=== PATIENT | female | born 1950 | race Caucasian/White ===

== ENCOUNTER → 2017-01-23 | Outpatient (CLI) | payer OTHER ==
[~2017-01-23] MED LIST: AMLO10TA2 PO; ASPI325T PO; DIVA125T PO; LEVO.1 PO; LISI40TA PO
--- NOTE | 2017-01-23 21:44 | MG ---
cc: NORBERTO ANGULO MD Lab No: Date: 01/23/2017 Age: Sex: F Race: EEG NUMBER [id number] DATE OF 1950 INDICATION A 66-year-old history of stroke, difficulty with balance, word-finding, episode of drooling at night. DESCRIPTION 8-9 Hz alpha activity, 20-50 microvolts, low amplitude beta in the frontal channels, good anterior-posterior gradient. Mild driving with photic stimulation. Left temporal tiny sharp transient epoch 109. Frequent eye movement blink artifact towards the end of the recording. Attenuation slowing of background followed by a wakeful state. A single lead EKG showing sinus rhythm. INTERPRETATION Minimal nonspecific changes as noted above, otherwise normal, stable EEG. No active seizures. Clinical correlation. Norberto Angulo MD MG/KK /9:10 PM /9:33 PM
== END ==
LOC: HEEG 08:17
PROVIDERS: ATTEND Psychiatry & Neurology Neurology
DX: I63.9 Cerebral infarction, unspecified (principal)
CPT/HCPCS: 95819

== ENCOUNTER 2017-03-11 05:59 | Day surgery (SDC) | payer OTHER ==
[2017-03-11] MEDS ORDERED: ASPI325T PO (07:18)
[2017-03-11] MEDS ORDERED: LEVO.1 PO (07:18)
[2017-03-11] MEDS ORDERED: AMLO10TA2 PO (07:18)
[2017-03-11] MEDS ORDERED: LISI40TA PO (07:18)
[2017-03-11] MEDS ORDERED: DIVA125T PO (07:18)
[2017-03-11] MEDS ORDERED: PROPOFOL 200 MG/20 ML AMP IV ONE (07:42)
--- NOTE | 2017-03-11 09:44 | MA ---
cc: DO Tutu MARKS. MD SUH,SUE HU MD DATE: 03/11/2017 DATE OF : 1950. REFERRING PHYSICIAN Dr. Zuñiga. CLINICAL INDICATION The patient is a 66-year-old lady with CVA, thus the patient came in for MAURICE to assess MR and whether the patient has any thrombosis/AST/PFO. PROCEDURE IN DETAIL The patient was sedated by the anesthesiologist using MAC. Transesophageal probe was advanced to distal part of esophagus. Multiple views of MAURICE were taken. The patient tolerated the procedure without any complication. FINDINGS With multiple views there is no obvious thrombus in left atrial and left atrial appendage. LV systolic function is preserved with some degree of LVH, mild to moderate MR is noted. Trace TR is also noted. There is no significant intraatrial shunts by Carotid Doppler flow. Bubble study showed no particle crossing. There is mild atherosclerotic plaque along the aortic arch. CONCLUSION 1. No apparent thrombus in the left atrial and left atrial appendage. 2. No AST/PFO. 3. Preserved LV systolic function with mild LVH. 4. Mild atherosclerotic plaque along the aortic arch. PLAN So far there is no convincing evidence for intracardiac thrombus. May consider ___ monitor, to monitor whether the patient has atrial fibrillation. Also the patient will be discharged home with followup. Thank you Dr. Marks. MD BRYANT Dan/TAEL /8:35 AM /9:35 AM
--- NOTE | 2017-03-12 07:44 | EKG ---
Date Performed: 03/11/2017 Time Performed: 07:10:54 PTAGE: 66 years EKG: Sinus rhythm . Leftward axis Borderline ECG NO PREVIOUS TRACING DOCTOR: Steve Reyes Interpretating Date/Time 03/12/2017 07:42:51
== END 2017-03-11 09:50 | disposition home or self-care (01) ==
LOC: HDOC 05:59 → HDIC 06:00 → HDOC 09:50
PROVIDERS: ATTEND Internal Medicine Cardiovascular Disease
DX: I63.9 Cerebral infarction, unspecified (principal); I10 Essential (primary) hypertension; E78.5 Hyperlipidemia, unspecified; E03.9 Hypothyroidism, unspecified; I34.0 Nonrheumatic mitral (valve) insufficiency; I70.0 Atherosclerosis of aorta
CPT/HCPCS: 93005; 93312; 93320; 93325

== ENCOUNTER → 2017-05-16 | Day surgery (SDC) | payer OTHER ==
[~2017-05-16] VITALS: Ht 147.3 cm; Wt 55.9 kg
[~2017-05-16] MED LIST changes: +ATROPINE SULFATE 1% OPHT SOLN 2 ML BTL ONE; +BALANCED SALT SOLN OPHT IRRIG 15 ML BTL ONE; +CHLORHEXIDINE GLUCONATE 2 % 1 PACK (2 CLOTHS) TOPICAL PRN; +DEXAMETHASONE SOD PHOS 4 MG/ML VIAL ONE; +DO NOT ADM ANY ANTICOAGULANT DRUGS PRN; +EPINEPHrine HCL (1:1000) 1 MG/ML VIAL ONE; +FLUO-1 PO; +INSULIN HUMAN REGULAR 1,000 UNITS/10 ML VIAL SQ PRN; +LACTATED RINGER'S 1000 ML IV PRN; -LEVO.1 PO; +LEVO88TA2 PO; +METOPROLOL TARTRATE 25 MG TAB PO PRN; +OMEG100010 PO; +ONDANSETRON HCL 4 MG/2 ML VIAL IV PUSH ONE; +POVIDONE IODINE 5% (ANTISEPSIS KIT) 4 APPLICATIONS EACH NARE PRN; +PROPOFOL 200 MG/20 ML AMP IV ONE; +SODIUM CHLORID 0.9% 500 ML IV PRN; +STERILE WATER FOR INJ 20 ML VIAL ONE; +TOBRAMYCIN/DEXAMETHASONE OPTH OINT 3.5 GM TUBE ONE; +TRIAMCINOLONE ACETONIDE/PF 40 MG/ML OPTH VIAL ONE; +ceFAZolin INJ 1,000 MG VIAL ONE; +ePHEDrine/NS 25 MG/5 ML SYR IV ONE
[2017-05-16 11:03] VITALS: BP 123/68; PULSE 70; RESP 18; TEMP 98.9; O2SAT 98
[2017-05-16 11:04] LABS: BASOPHIL # 0.1 TH/MM3 (0-0.2); BASOPHIL % 0.9 % (0.0-2.0); EOSINOPHIL # 0.1 TH/MM3 (0-0.4); EOSINOPHIL % 2.1 % (0.0-4.0); HEMATOCRIT 37.5 % (35.0-46.0); HEMO FLAGS DIFF FINAL; LYMPH % 40.8 % (9.0-44.0); LYMPHOCYTE # 2.6 TH/MM3 (1.0-4.8); MEAN CELL VOLUME 90.3 FL (80.0-100.0); MEAN CORPUSCULAR HEMOGLOBIN 29.7 PG (27.0-34.0); MEAN CORPUSCULAR HGB CONC 32.9 % (32.0-36.0); MONO % 10.1 % (0.0-8.0); NEUT % 46.1 % (16.0-70.0); PLATELET COUNT 137 TH/MM3 (150-450); RED BLOOD COUNT 4.15 MIL/MM3 (4.00-5.30); RED CELL DISTRIBUTION WIDTH 13.2 % (11.6-17.2); WHITE BLOOD COUNT 6.5 TH/MM3 (4.0-11.0)
[2017-05-16] MEDS: TROPICAMIDE 1% OPHT SOLN 15 ML BTL RIGHT EYE SCH ×4 (11:33→12:33)
[2017-05-16] MEDS: CYCLOPENTOLATE HCL 1% OPHT SOLN 2 ML BTL RIGHT EYE SCH ×4 (11:33→12:33)
[2017-05-16] MEDS: ATROPINE SULFATE 1% OPHT SOLN 5 ML BTL RIGHT EYE SCH ×4 (11:33→12:33)
[2017-05-16] MEDS: PHENYLEPHRINE HCL 2.5% OPTH SOLN 2 ML BTL RIGHT EYE SCH ×4 (11:33→12:33)
[2017-05-16 16:05] VITALS: BP 140/65; PULSE 79; RESP 20; TEMP 97.1; O2SAT 98
--- NOTE | 2017-05-16 17:54 | MP ---
cc: BRITTANY HUSAIN M.D. DATE OF SURGERY: 05/16/2017. 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 OPERATIVE PROCEDURE PERFORMED: Trans pars plana vitrectomy with Endo panretinal photocoagulation, right eye. SURGEON: Brittany Husain MD. ANESTHESIA: INDICATIONS FOR THE PROCEDURE: Ms. Valdes is a 66-year-old woman with a history of decreased vision off and on since November of 2016. She was found to have a vitreous hemorrhage in her right eye and on fluorescein testing, the superotemporal quadrant showed extensive capillary closure from a preexisting vein occlusion and she had retinal neovascularization on the optic nerve and her vision was down to 20/100. She wished to proceed electively with a vitrectomy and sectoral panretinal photocoagulation. The risks and benefits of surgery were discussed with the patient. Informed consent was obtained. No guarantee was made as to visual outcome. DESCRIPTION OF THE PROCEDURE IN DETAIL: She was brought to [facility] Operating Room #1 and placed on the operating table. Appropriate anesthesia monitoring devices were applied and she was placed under a general anesthesia using a laryngeal mask. The right eye was identified as the operative site and then prepped and draped in the usual sterile fashion. A lid speculum was placed. The microscope was brought around and adjusted. At this point, a time-out was called with the surgical team agreeing to the surgical site and proposed procedure. Using the Chepe 23-gauge vitrectomy system, the trocar cannulas were placed 4 mm posterior to the limbus after first displacing the conjunctiva and with a beveled entrance through the sclera. The first one was placed at approximately nine o'clock and verified to be in the posterior chamber. An infusion cannula was affixed to it. It was turned on to additional trocar cannulas were placed in similar fashion at ten and two o'clock. Using the flat contact lens for visualization, the eye was entered with the Endo neuro intensivist physician light pipe and vitrectomy cutter. A core vitrectomy was carried out down to the epicenter at the optic nerve which was amputated. The flat lens was switched out for the BIOM and the more peripheral vitreous was removed. Using the endolaser probe, the ischemic area in the superotemporal quadrant was treated with a power of 250 milliwatts and 0.1-second exposure and the total number of treats was 664. The plugs were placed back in the eye and the fundus was inspected with the indirect ophthalmoscope and scleral depression. No retinal breaks were found. Next using the soft-tip linear extrusion needle, an air-fluid exchange was performed. The plugs were placed back in the cannulas and they were removed one by one with tamponade of the site with a cotton swab and diathermy to the overlying conjunctival wound. This left the eye with good pressure and no visible air leaks. Atropine drops were placed on the cornea followed by subconjunctival injections of Ancef 125 mg in 0.5 cc and Decadron 2 mg in 0.5 cc. The lid speculum was removed. TobraDex ointment was placed on the cornea and then the right eye was patched and shielded. 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 MD JUDSON Munoz/CANDIDO /3:26 PM /5:45 PM
== END | disposition home or self-care (01) ==
LOC: HSDC 09:57
PROVIDERS: ATTEND Ophthalmology
DX: H34.8111 Central retinal vein occlusion, right eye, with retinal neovascularization (principal); I10 Essential (primary) hypertension; Z86.73 Personal history of transient ischemic attack (TIA), and cerebral infarction without residual deficits
CPT/HCPCS: 00145; 67040; 85025; J0171; J0690; J1100; J2405; J3010; J7120; J3300